=== PATIENT | male | born 1950 | race Caucasian/White ===

== ENCOUNTER 2017-06-18 16:56 | Inpatient (IN) | payer MEDICARE, BC ==
[~2017-06-18] VITALS: Ht 182.9 cm; Wt 72.6 kg
[2017-06-18 17:10] VITALS: BP 133/85
[2017-06-18 17:49] LABS: HEMATOCRIT 48.1 % (42.0-52.0); HEMOGLOBIN 16.5 G/DL (14.2-18.0); MEAN CORPUSCULAR VOLUME 91 FL (80-99); PLATELET COUNT 265 K/UL (150-450); RED BLOOD COUNT 5.32 M/UL (4.70-6.10); RED CELL DISTRIBUTION WIDTH 11.7 % (11.6-14.8)
[2017-06-18] MEDS ORDERED: NKM (17:56)
[2017-06-18 17:59] LABS: ANION GAP 10 mmol/L (5-15); BLOOD UREA NITROGEN 14 mg/dL (7-18); CALCIUM 9.7 MG/DL (8.5-10.1); CARBON DIOXIDE 28 MMOL/L (21-32); CHLORIDE 98 MMOL/L (98-107); CREATININE 0.9 MG/DL (0.55-1.30); POTASSIUM 3.2 MMOL/L (3.5-5.1); SODIUM 136 MMOL/L (136-145)
[2017-06-18 18:03] LABS: ALANINE AMINOTRANSFERASE 50 U/L (12-78); ALBUMIN/GLOBULIN RATIO 0.9 (1.0-2.7); ALKALINE PHOSPHATASE 153 U/L (46-116); ASPARTATE AMINO TRANSFERASE 34 U/L (15-37); BILIRUBIN,TOTAL 0.5 MG/DL (0.2-1.0)
[2017-06-18 18:11] VITALS: BP 134/112
[2017-06-18] MEDS: metroNIDAZOLE 500mg tab ORAL ONE ×2 (18:45→18:55)
[2017-06-18] MEDS ORDERED: NS 1000ml 2,200 ML IVLG ONE (18:45)
[2017-06-18] MEDS ORDERED: DiphenhydrAMINE 50mg/ml Inj IVP ONE (18:45)
[2017-06-18 19:30] VITALS: BP 161/68
[2017-06-18] MEDS ORDERED: Haloperidol 5mg/ml Inj IM ONE ×2 (19:30→21:30)
[2017-06-18] MEDS ORDERED: PROAIR HFA8.5 GM INH (19:52)
[2017-06-18] MEDS ORDERED: VIAGRA100 MG PO (19:52)
[2017-06-18] MEDS ORDERED: BUPROPION XL150 MG ORAL (19:52)
[2017-06-18] MEDS ORDERED: ZITHROMAX250 MG ORAL (19:52)
[2017-06-18] MEDS ORDERED: MEDROL DOSEPAK4 MG ORAL (19:52)
[2017-06-18] MEDS ORDERED: TRAZODONE HCL50 MG ORAL (19:52)
[2017-06-18] MEDS ORDERED: PROSCAR5 MG ORAL (19:52)
[2017-06-18 20:11] LABS: APPEARANCE,URINE CLEAR; BILIRUBIN, URINE NEGATIVE (NEGATIVE); GLUCOSE, URINE (UA) NEGATIVE (NEGATIVE); KETONES,URINE NEGATIVE (NEGATIVE); LEUKOCYTE ESTERASE ,URINE 1+ (NEGATIVE); NITRITE,URINE NEGATIVE (NEGATIVE); PH,URINE 6 (4.5-8.0); PROTEIN,URINE 3+ (NEGATIVE); UROBILINOGEN,URINE 1 MG/DL (0.0-1.0)
[2017-06-18 20:13] LABS: COLOR,URINE YELLOW
[2017-06-18] MEDS ORDERED: LORazepam Inj 2mg/ml 1ml ONE (20:13)
[2017-06-18] MEDS ORDERED: LORazepam Inj 2mg/ml 1ml IV ONE ×5 (20:15→23:15)
--- NOTE | 2017-06-18 21:17 | Emergency Room Report ---
History of Present Illness General Chief Complaint: General Complaint Source: Patient, Family Member, EMS Present Illness HPI The patient is brought in by EMS. Multiple complaints. The patient states that he started vomiting today and this has been intractable. Just after arriving here in the emergency department, he has developed a recurrent large diarrhea bowel movement. There was also concerned that he had taken oxycodone or Xanax prior to arrival. The was bedside and states that he has an addiction problem with narcotics. She states that he has a history of alcohol use and although there is not alcohol in the home that she knows that he hides it. He did recently (couple weeks ago) have an episode of pneumonia for which he underwent a couple courses of antibiotics. He denies fever or chills. He denies abdominal pain. He states that he has all over body pain and aching. He denies headache or neck pain. He has no other complaints. Allergies: Coded Allergies: No Known Allergies (Unverified , 06/18/17) Patient History Past Medical History: see triage record, other - Drug and alcohol abuse Social History: Reports: alcohol use, drug use Reviewed Nursing Documentation: PMH: Agreed, PSxH: Agreed Nursing Documentation-PMH History Of Psychiatric Problem: Yes Review of Systems All Other Systems: negative except mentioned in HPI Physical Exam Vital Signs Date Time Temp Pulse Resp B/P (MAP) Pulse Ox O2 Delivery O2 Flow Rate FiO2 06/18/17 16:47 98.0 98 16 130/80 98 Room Air 98.1 Sp02 EP Interpretation: reviewed, normal General Appearance: alert, GCS 15, non-toxic, other - Agitated, mildly combatative, vomiting, uncontrolled diarrhea Head: normocephalic, atraumatic Eyes: bilateral eye normal inspection, bilateral eye PERRL ENT: hearing grossly normal, normal pharynx, no angioedema, normal voice Neck: full range of motion, supple/symm/no masses Respiratory: chest non-tender, lungs clear, normal breath sounds, speaking full sentences Cardiovascular #1: regular rate, rhythm, no edema Gastrointestinal: normal bowel sounds, non tender, soft, non-distended, no guarding, no rebound Rectal: deferred Musculoskeletal: back normal, gait/station normal, normal range of motion, non- tender Neurologic: alert, responsive, motor strength/tone normal, sensory intact, speech normal Psychiatric: no suicidal/homicidal ideation, other - agitated, will answer simple questions appropriately, very distracted, moaning. Skin: normal color, no rash, warm/dry, well hydrated Medical Decision Making Diagnostic Impression: Primary Impression: Colitis Additional Impressions: Gastroenteritis Alcohol abuse Narcotic abuse Alcohol withdrawal ER Course This patient presented with recurrent vomiting and watery diarrhea. Initially, he was somewhat redirectable. However, he became more agitated and confused. He also became more tachycardic and hypertensive. I suspect that he is going through alcohol withdrawal. Blood alcohol was 0. I also had wanted to obtain a head CT, however, the patient would not remain still for the imaging. He required very large doses of benzodiazepines. He seemed resistant to Ativan. Therefore he was given Versed in order to obtain a head CT. Possibly this patient has C. difficile colitis related to antibiotic use. I was unable to obtain a CT of the abdomen and pelvis as this patient would not remain still to obtain images. CT of the head is pending at the time of this dictation. If there are any abnormalities on the CT, an addendum will be added. Regardless, this patient is admitted for further evaluation and treatment. This patient is critically ill. This patient required complex medical decision- making, aggressive intervention, extensive laboratory workup and monitoring. Critical care time: 40 minutes. Laboratory Tests Test 06/18/17 17:25 06/18/17 19:44 06/18/17 21:21 White Blood Count 21.0 K/UL (4.8-10.8) H Red Blood Count 5.32 M/UL (4.70-6.10) Hemoglobin 16.5 G/DL (14.2-18.0) Hematocrit 48.1 % (42.0-52.0) Mean Corpuscular Volume 91 FL (80-99) Mean Corpuscular Hemoglobin 31.1 PG (27.0-31.0) H Mean Corpuscular Hemoglobin Concent 34.3 G/DL (32.0-36.0) Red Cell Distribution Width 11.7 % (11.6-14.8) Platelet Count 265 K/UL (150-450) Mean Platelet Volume 5.9 FL (6.5-10.1) L Neutrophils (%) (Auto) % (45.0-75.0) Lymphocytes (%) (Auto) % (20.0-45.0) Monocytes (%) (Auto) % (1.0-10.0) Eosinophils (%) (Auto) % (0.0-3.0) Basophils (%) (Auto) % (0.0-2.0) Differential Total Cells Counted 100 Neutrophils % (Manual) 79 % (45-75) H Lymphocytes % (Manual) 17 % (20-45) L Monocytes % (Manual) 3 % (1-10) Eosinophils % (Manual) 0 % (0-3) Basophils % (Manual) 0 % (0-2) Band Neutrophils 1 % (0-8) Platelet Estimate Adequate Platelet Morphology Normal Red Blood Cell Morphology Normal Sodium Level 136 MMOL/L (136-145) Potassium Level 3.2 MMOL/L (3.5-5.1) L Chloride Level 98 MMOL/L (98-107) Carbon Dioxide Level 28 MMOL/L (21-32) Anion Gap 10 mmol/L (5-15) Blood Urea Nitrogen 14 mg/dL (7-18) Creatinine 0.9 MG/DL (0.55-1.30) Estimate Glomerular Filtration Rate > 60 mL/min (>60) Glucose Level 132 MG/DL (74-106) H Calcium Level 9.7 MG/DL (8.5-10.1) Total Bilirubin 0.5 MG/DL (0.2-1.0) Aspartate Amino Transferase (AST) 34 U/L (15-37) Alanine Aminotransferase (ALT) 50 U/L (12-78) Alkaline Phosphatase 153 U/L (46-116) H Total Protein 8.5 G/DL (6.4-8.2) H Albumin 4.0 G/DL (3.4-5.0) Globulin 4.5 g/dL Albumin/Globulin Ratio 0.9 (1.0-2.7) L Salicylates Level 2.5 ug/mL (2.8-20) L Acetaminophen Level < 2 MCG/ML (10-30) L Serum Alcohol < 3 mg/dL Urine Color Yellow Urine Appearance Clear Urine pH 6 (4.5-8.0) Urine Specific [place] 1.020 (1.005-1.035) Urine Protein 3+ (NEGATIVE) H Urine Glucose (UA) Negative (NEGATIVE) Urine Ketones Negative (NEGATIVE) Urine Occult Blood 1+ (NEGATIVE) H Urine Nitrite Negative (NEGATIVE) Urine Bilirubin Negative (NEGATIVE) Urine Urobilinogen 1 MG/DL (0.0-1.0) H Urine Leukocyte Esterase 1+ (NEGATIVE) H Urine RBC 2-4 /HPF (0 - 0) H Urine WBC 0-2 /HPF (0 - 0) Urine Squamous Epithelial Cells None /LPF (NONE/OCC) Urine Bacteria Few /HPF (NONE) Urine Opiates Screen Negative (NEGATIVE) Urine Barbiturates Screen Negative (NEGATIVE) Phencyclidine (PCP) Screen Negative (NEGATIVE) Urine Amphetamines Screen Negative (NEGATIVE) Urine Benzodiazepines Screen Negative (NEGATIVE) Urine Cocaine Screen Negative (NEGATIVE) Urine Marijuana (THC) Screen Positive (NEGATIVE) H Ammonia 15 umol/L (11-32) EKG Diagnostic Results Rate: normal Rhythm: NSR ST Segments: no acute changes Rhythm Strip Diag. Results EP Interpretation: yes Rate: 60's Rhythm: NSR, no PVC's, no ectopy CT/MRI/US Diagnostic Results CT/MRI/US Diagnostic Results : Imaging Test Ordered: CT head Impression Pending. Last Vital Signs Date Time Temp Pulse Resp B/P (MAP) Pulse Ox O2 Delivery O2 Flow Rate FiO2 06/18/17 19:30 97.6 98 32 161/68 99 Room Air 97.6 Disposition: ADMITTED INPATIENT Condition: Critical Referrals: NON PHYSICIAN (PCP) BE COLLIER D.O. Jun 18, 2017 21:17
[2017-06-18 21:30] VITALS: BP 140/55
[2017-06-18] MEDS ORDERED: Midazolam 2mg/2ml Inj IVP ONE (23:30)
[2017-06-18 23:35] VITALS: BP 150/74
[2017-06-19] VITALS (8 sets, daily range): BP systolic 130–163; BP diastolic 61–86
[2017-06-19] MEDS ORDERED: Thiamine HCl 100 MG in D5W 55 ML IVPB SCH (01:00)
[2017-06-19] MEDS ORDERED: Thiamine HCl 100mg/ml 2 ml Inj ONE (01:47)
[2017-06-19] MEDS: NS w/KCl 20mEq 1,000 ML IV SCH ×3 (02:18→18:55)
--- NOTE | 2017-06-19 08:25 | History and Physical ---
History of Present Illness General Date patient seen: Jun 19, 2017 Time patient seen: 08:24 Reason for Hospitalization: diarrhea Present Illness HPI 67/yo male with pmh of alcohol/benzo/narcotic dependence (was in remission), depression/anxiety who presents with nausea/vomiting and diarrhea. Pt is poor historian. The patient states that he started vomiting yesterday and this has been intractable. Just after arriving in ER, he has developed a recurrent large diarrhea bowel movement. There was also concerned that he had taken oxycodone or Xanax prior to arrival. The was bedside and states that he has an addiction problem with narcotics. She states that he has a history of alcohol use and although there is not alcohol in the home that she knows that he hides it. He did recently (couple weeks ago) have an episode of pneumonia for which he underwent a couple courses of antibiotics. He denies fever or chills. He denies abdominal pain. He states that he has all over body pain and aching. He denies headache or neck pain. Denies chest pain, dysuria, cough. In ER, pt noted to have recurrent vomiting and diarrhea. C. diff sent. Empiric flagyl given. Pt also became more confused and agitated. He was tachycardic and hypertensive so concern for alcohol withdrawal. CT head was done and is pending. He was given several doses of ativan IV w/ improvement. Allergies: Coded Allergies: No Known Allergies (Unverified , 06/18/17) Medication History Scheduled Albuterol Sulfate* (Proair Hfa*), 2 PUFFS INH BID, (Reported) Azithromycin* (Zithromax*), 250 MG ORAL DAILY, (Reported) Bupropion Xl* (Bupropion Xl*), 150 MG ORAL DAILY, (Reported) Finasteride* (Proscar*), 5 MG ORAL DAILY, (Reported) Methylprednisolone (Methylprednisolone*), 4 MG ORAL .as directed, (Reported) Scheduled PRN Sildenafil Citrate (Viagra), 100 MG PO DAILY PRN for OTHER, (Reported) Trazodone Hcl* (Desyrel*), 50 MG ORAL Q6HR PRN for For Anxiety, (Reported) Discontinued Medications No Known Medications* (NKM - No Known Medications*), 0 ., (Reported) Discontinued Reason: Therapy completed Patient History History Provided By: Family Member, Medical Record, PMD Healthcare decision maker Resuscitation status Advanced Directive on File Past Medical/Surgical History Past Medical/Surgical History: (1) Alcohol dependence (2) Tobacco abuse (3) Narcotic addiction (4) Benzodiazepine dependence (5) Depression with anxiety Family History Family History: Patient reports no known family medical history. Social History Social History: (1) Alcohol abuse (2) Tobacco abuse Review of Systems Constitutional: Reports: weakness Eye: Reports: no symptoms ENT: Reports: no symptoms Respiratory: Reports: no symptoms Cardiovascular: Reports: no symptoms Gastrointestinal: Reports: diarrhea, nausea, vomiting Genitourinary: Reports: no symptoms Musculoskeletal: Reports: no symptoms Skin: Reports: no symptoms Psychiatric: Reports: no symptoms Neurological: Reports: no symptoms Endocrine: Reports: no symptoms Hematologic/Lymphatic: Reports: no symptoms Physical Exam Physical Exam Narrative General Appearance: alert, GCS 15, non-toxic, other - Agitated, mildly combatative, vomiting, uncontrolled diarrhea Head: normocephalic, atraumatic Eyes: bilateral eye normal inspection, bilateral eye PERRL ENT: hearing grossly normal, normal pharynx, no angioedema, normal voice Neck: full range of motion, supple/symm/no masses Respiratory: chest non-tender, lungs clear, normal breath sounds, speaking full sentences Cardiovascular #1: regular rate, rhythm, no edema Gastrointestinal: normal bowel sounds, non tender, soft, non-distended, no guarding, no rebound Rectal: deferred Musculoskeletal: back normal, gait/station normal, normal range of motion, non- tender Neurologic: alert, responsive, motor strength/tone normal, sensory intact, speech normal Psychiatric: no suicidal/homicidal ideation, other - agitated, will answer simple questions appropriately, very distracted, moaning. Skin: normal color, no rash, warm/dry, well hydrated Last 24 Hour Vital Signs Date Time Temp Pulse Resp B/P (MAP) Pulse Ox O2 Delivery O2 Flow Rate FiO2 06/19/17 05:05 97.6 87 32 132/68 99 Room Air 97.6 06/19/17 04:47 97.6 87 32 132/68 99 Room Air 97.6 06/19/17 03:41 98.0 89 32 130/72 99 Room Air 98.0 06/19/17 01:30 98.0 108 32 163/86 96 Room Air 98.0 06/18/17 23:35 97.6 99 32 150/74 99 Room Air 97.6 06/18/17 21:30 97.6 109 33 140/55 97 Room Air 97.6 06/18/17 19:30 97.6 98 32 161/68 99 Room Air 97.6 06/18/17 18:11 97.6 79 26 134/112 99 Room Air 97.6 06/18/17 17:10 79 16 133/85 99 Room Air 06/18/17 16:47 98.0 98 16 130/80 98 Room Air 98.1 Intake and Output 06/18/17 06/19/17 19:00 07:00 Intake Total 3356 ml Output Total 800 ml Balance 2556 ml Intake IV Total 3356 ml Output Urine Total 800 ml # Bowel Movements 2 1 Laboratory Tests Test 06/18/17 17:25 06/18/17 19:44 06/18/17 21:21 White Blood Count 21.0 K/UL (4.8-10.8) H Red Blood Count 5.32 M/UL (4.70-6.10) Hemoglobin 16.5 G/DL (14.2-18.0) Hematocrit 48.1 % (42.0-52.0) Mean Corpuscular Volume 91 FL (80-99) Mean Corpuscular Hemoglobin 31.1 PG (27.0-31.0) H Mean Corpuscular Hemoglobin Concent 34.3 G/DL (32.0-36.0) Red Cell Distribution Width 11.7 % (11.6-14.8) Platelet Count 265 K/UL (150-450) Mean Platelet Volume 5.9 FL (6.5-10.1) L Neutrophils (%) (Auto) % (45.0-75.0) Lymphocytes (%) (Auto) % (20.0-45.0) Monocytes (%) (Auto) % (1.0-10.0) Eosinophils (%) (Auto) % (0.0-3.0) Basophils (%) (Auto) % (0.0-2.0) Differential Total Cells Counted 100 Neutrophils % (Manual) 79 % (45-75) H Lymphocytes % (Manual) 17 % (20-45) L Monocytes % (Manual) 3 % (1-10) Eosinophils % (Manual) 0 % (0-3) Basophils % (Manual) 0 % (0-2) Band Neutrophils 1 % (0-8) Platelet Estimate Adequate Platelet Morphology Normal Red Blood Cell Morphology Normal Sodium Level 136 MMOL/L (136-145) Potassium Level 3.2 MMOL/L (3.5-5.1) L Chloride Level 98 MMOL/L (98-107) Carbon Dioxide Level 28 MMOL/L (21-32) Anion Gap 10 mmol/L (5-15) Blood Urea Nitrogen 14 mg/dL (7-18) Creatinine 0.9 MG/DL (0.55-1.30) Estimat Glomerular Filtration Rate > 60 mL/min (>60) Glucose Level 132 MG/DL (74-106) H Calcium Level 9.7 MG/DL (8.5-10.1) Total Bilirubin 0.5 MG/DL (0.2-1.0) Aspartate Amino Transf (AST/SGOT) 34 U/L (15-37) Alanine Aminotransferase (ALT/SGPT) 50 U/L (12-78) Alkaline Phosphatase 153 U/L (46-116) H Total Protein 8.5 G/DL (6.4-8.2) H Albumin 4.0 G/DL (3.4-5.0) Globulin 4.5 g/dL Albumin/Globulin Ratio 0.9 (1.0-2.7) L Salicylates Level 2.5 ug/mL (2.8-20) L Acetaminophen Level < 2 MCG/ML (10-30) L Serum Alcohol < 3 mg/dL Urine Color Yellow Urine Appearance Clear Urine pH 6 (4.5-8.0) Urine Specific [place] 1.020 (1.005-1.035) Urine Protein 3+ (NEGATIVE) H Urine Glucose (UA) Negative (NEGATIVE) Urine Ketones Negative (NEGATIVE) Urine Occult Blood 1+ (NEGATIVE) H Urine Nitrite Negative (NEGATIVE) Urine Bilirubin Negative (NEGATIVE) Urine Urobilinogen 1 MG/DL (0.0-1.0) H Urine Leukocyte Esterase 1+ (NEGATIVE) H Urine RBC 2-4 /HPF (0 - 0) H Urine WBC 0-2 /HPF (0 - 0) Urine Squamous Epithelial Cells None /LPF (NONE/OCC) Urine Bacteria Few /HPF (NONE) Urine Opiates Screen Negative (NEGATIVE) Urine Barbiturates Screen Negative (NEGATIVE) Phencyclidine (PCP) Screen Negative (NEGATIVE) Urine Amphetamines Screen Negative (NEGATIVE) Urine Benzodiazepines Screen Negative (NEGATIVE) Urine Cocaine Screen Negative (NEGATIVE) Urine Marijuana (THC) Screen Positive (NEGATIVE) H Ammonia 15 umol/L (11-32) Height (Feet): 6 Weight (Pounds): 160 Medications Current Medications Medications (Trade) Dose Ordered Sig/Yamileth Route PRN Reason Start Time Stop Time Status Last Admin Dose Admin Acetaminophen (Tylenol) 650 mg Q4H PRN ORAL Mild Pain (Pain Scale 1-3) 06/18/17 21:45 07/18/17 21:44 Dextrose (Dextrose 50%) STAT PRN IV Hypoglycemia 06/19/17 00:15 07/19/17 00:14 Diazepam (Valium) 2 mg Q6H PRN ORAL For Anxiety 06/19/17 00:15 06/26/17 00:14 Folic Acid (Folate) 1 mg DAILY ORAL 06/19/17 09:00 07/19/17 08:59 Metronidazole 100 ml @ 100 mls/hr Q8HR@0400,1200,2000 IVPB 06/19/17 04:00 06/26/17 23:59 06/19/17 04:01 Multivitamins (Multivitamins) 1 tab DAILY ORAL 06/19/17 09:00 07/19/17 08:59 Ondansetron HCl (Zofran) 4 mg Q6H PRN IVP Nausea & Vomiting 06/18/17 21:45 07/18/17 21:44 Sodium Chloride 1,000 ml @ 100 mls/hr Q10H IV 06/18/17 22:30 07/18/17 22:29 06/19/17 02:18 Thiamine HCl 100 mg/Dextrose 56 ml @ 112 mls/hr Q24H IVPB 06/19/17 01:00 07/19/17 00:59 06/19/17 01:52 Assessment/Plan Problem List: (1) Sepsis ICD Codes: A41.9 - Sepsis, unspecified organism SNOMED: 26727681 (2) Acute gastroenteritis ICD Codes: K52.9 - Noninfective gastroenteritis and colitis, unspecified SNOMED: 79404055 (3) Diarrhea ICD Codes: R19.7 - Diarrhea, unspecified SNOMED: 36270743 (4) Intractable vomiting ICD Codes: R11.10 - Vomiting, unspecified SNOMED: 542688697 (5) Hypokalemia ICD Codes: E87.6 - Hypokalemia SNOMED: 06810865 (6) Hypomagnesemia ICD Codes: E83.42 - Hypomagnesemia SNOMED: 234696850 Status: stable Assessment/Plan Admit to tele Gi consulted Empiric flagyl F/u C. diff Monitor lytes and replete Trend CBC IVFs w/ KCl Banana bag Psych consulted Valium PRN for withdrawal D/c buproprion Start prozac Pain control Supportive care SCDs for DVT ppx DVT Prophylaxis: SCD Code Status: Full Hospital Classification Declaration: Based on this initial evaluation, and depending on the patient's clinical course, I anticipate that this patient will require hospitalization for 2-3 days for sepsis, vomiting, diarrhea, and close respiratory/hemodynamic monitoring. Disposition: Once the patient is stable to leave the hospital, I anticipate the patient will likely be discharged to the following environment: home with HH vs SNF I spent 72 minutes on this patient's case, and >50% were dedicated to counseling and/or care coordination. Discussed with patient/family, nursing staff, SW/CM, PCP, GI, psych regarding clinical status, treatment course, and disposition planning. Time of note may not reflect time of encounter. Dion Ramsay M.D. Jun 19, 2017 08:24
[2017-06-19 08:42] LABS: BASOPHILS % (AUTO) 0.6 % (0.0-2.0); EOSINOPHILS % (AUTO) 0.1 % (0.0-3.0); HEMOGLOBIN 14.5 G/DL (14.2-18.0); LYMPHOCYTES % (AUTO) 10.9 % (20.0-45.0); MEAN CORPUSCULAR VOLUME 90 FL (80-99); MONOCYTES % (AUTO) 4.9 % (1.0-10.0); NEUTROPHILS % (AUTO) 83.4 % (45.0-75.0); PLATELET COUNT 219 K/UL (150-450); RED BLOOD COUNT 4.54 M/UL (4.70-6.10); RED CELL DISTRIBUTION WIDTH 11.7 % (11.6-14.8); WHITE BLOOD COUNT 14.5 K/UL (4.8-10.8)
[2017-06-19 09:09] LABS: ANION GAP 8 mmol/L (5-15); BLOOD UREA NITROGEN 10 mg/dL (7-18); CALCIUM 8.2 MG/DL (8.5-10.1); CARBON DIOXIDE 27 MMOL/L (21-32); CHLORIDE 103 MMOL/L (98-107); CREATININE 0.6 MG/DL (0.55-1.30); POTASSIUM 3.5 MMOL/L (3.5-5.1); SODIUM 137 MMOL/L (136-145)
[2017-06-19] MEDS ORDERED: TraZODone 50mg tab ORAL PRN (09:15)
--- NOTE | 2017-06-19 09:54 | GI Initial Consult Note ---
Teagan Marcumh Adebayo N.PFreddy 06/19/17 0954: History of Present Illness General Date patient seen: Jun 19, 2017 Time patient seen: 09:46 Reason for Hospitalization: General Complaint Referring physician: RADHA NIEVES Reason for Consultation: VOMITING, DIARRHEA Present Illness HPI The patient is brought in by EMS. Multiple complaints. The patient states that he started vomiting today and this has been intractable. Just after arriving here in the emergency department, he has developed a recurrent large diarrhea bowel movement. There was also concerned that he had taken oxycodone or Xanax prior to arrival. The was bedside and states that he has an addiction problem with narcotics. She states that he has a history of alcohol use and although there is not alcohol in the home that she knows that he hides it. He did recently (couple weeks ago) have an episode of pneumonia for which he underwent a couple courses of antibiotics. He denies fever or chills. He denies abdominal pain. He states that he has all over body pain and aching. He denies headache or neck pain. He has no other complaine of dits. GI consulted for vomiting/diarrhea Pt seen, awake anxious noted with tremors reported with recent episodarrhea. No active vomiting at this time. Denies any melena or hematochezia. Duration of diarrhea x 3-4 days. Denies any medical history. Denies MJ use, despite positive utox. Daily ETOH user approximately 3-4 cans of beer daily. Stated he has been taking daily oxycodone to "get high." Denies any abdominal pain at this time. Denies any unintentional weight loss or changes in dietary habits. Denies any recent travels. Has been taking zpack for his pneumonia. Unknown history endoscopy / colonoscopy. Home Meds Reported Medications Bupropion Xl* (BUPROPION XL*) 150 Mg Tab.er.24h, 150 MG ORAL DAILY 06/18/17 Finasteride* (PROSCAR*) 5 Mg Tablet, 5 MG ORAL DAILY 06/18/17 Trazodone Hcl* (DESYREL*) 50 Mg Tablet, 50 MG ORAL Q6HR Y for For Anxiety 06/18/17 Albuterol Sulfate* (PROAIR HFA*) 8.5 Gm Hfa.aer.ad, 2 PUFFS INH BID 06/18/17 Sildenafil Citrate (VIAGRA) 100 Mg Tablet, 100 MG PO DAILY Y for OTHER TAKE ONE TABLET BY MOUTH ONCE DAILY NEEDED 06/18/17 Discontinued Reported Medications Methylprednisolone (Methylprednisolone*) 4 Mg Tab.ds.pk, 4 MG ORAL .as directed 06/18/17 Azithromycin* (ZITHROMAX*) 250 Mg Tablet, 250 MG ORAL DAILY, #6 TAB 0 Refills Take two tables once daily for 1 day, then one tablet once daily for 4 days. 06/18/17 No Known Medications* (NKM - No Known Medications*) ., 0 ., 0 Refills 06/18/17 Med list reviewed/reconciled: Yes Allergies: Coded Allergies: No Known Allergies (Unverified , 06/18/17) Patient History Limited by: medical condition History Provided By: Patient, Medical Record PMH Narrative Past Medical History: see triage record, other - Drug and alcohol abuse Social History: Reports: alcohol use, drug use Reviewed Nursing Documentation: PMH: Agreed, PSxH: Agreed Nursing Documentation-PMH History Of Psychiatric Problem: Yes Social History: Reports: alcohol use, drug use Review of Systems All Other Systems: negative except mentioned in HPI Physical Exam Vital Signs Date Time Temp Pulse Resp B/P (MAP) Pulse Ox O2 Delivery O2 Flow Rate FiO2 06/18/17 16:47 98.0 98 16 130/80 98 Room Air 98.1 Sp02 EP Interpretation: reviewed, normal Labs Laboratory Tests Test 06/18/17 17:25 06/18/17 19:44 06/18/17 21:21 06/19/17 08:00 White Blood Count 21.0 K/UL (4.8-10.8) H 14.5 K/UL (4.8-10.8) H Red Blood Count 5.32 M/UL (4.70-6.10) 4.54 M/UL (4.70-6.10) L Hemoglobin 16.5 G/DL (14.2-18.0) 14.5 G/DL (14.2-18.0) Hematocrit 48.1 % (42.0-52.0) 41.0 % (42.0-52.0) L Mean Corpuscular Volume 91 FL (80-99) 90 FL (80-99) Mean Corpuscular Hemoglobin 31.1 PG (27.0-31.0) H 31.9 PG (27.0-31.0) H Mean Corpuscular Hemoglobin Concent 34.3 G/DL (32.0-36.0) 35.3 G/DL (32.0-36.0) Red Cell Distribution Width 11.7 % (11.6-14.8) 11.7 % (11.6-14.8) Platelet Count 265 K/UL (150-450) 219 K/UL (150-450) Mean Platelet Volume 5.9 FL (6.5-10.1) L 6.3 FL (6.5-10.1) L Neutrophils (%) (Auto) % (45.0-75.0) 83.4 % (45.0-75.0) H Lymphocytes (%) (Auto) % (20.0-45.0) 10.9 % (20.0-45.0) L Monocytes (%) (Auto) % (1.0-10.0) 4.9 % (1.0-10.0) Eosinophils (%) (Auto) % (0.0-3.0) 0.1 % (0.0-3.0) Basophils (%) (Auto) % (0.0-2.0) 0.6 % (0.0-2.0) Differential Total Cells Counted 100 Neutrophils % (Manual) 79 % (45-75) H Lymphocytes % (Manual) 17 % (20-45) L Monocytes % (Manual) 3 % (1-10) Eosinophils % (Manual) 0 % (0-3) Basophils % (Manual) 0 % (0-2) Band Neutrophils 1 % (0-8) Platelet Estimate Adequate Platelet Morphology Normal Red Blood Cell Morphology Normal Sodium Level 136 MMOL/L (136-145) 137 MMOL/L (136-145) Potassium Level 3.2 MMOL/L (3.5-5.1) L 3.5 MMOL/L (3.5-5.1) Chloride Level 98 MMOL/L (98-107) 103 MMOL/L (98-107) Carbon Dioxide Level 28 MMOL/L (21-32) 27 MMOL/L (21-32) Anion Gap 10 mmol/L (5-15) 8 mmol/L (5-15) Blood Urea Nitrogen 14 mg/dL (7-18) 10 mg/dL (7-18) Creatinine 0.9 MG/DL (0.55-1.30) 0.6 MG/DL (0.55-1.30) Estimat Glomerular Filtration Rate > 60 mL/min (>60) > 60 mL/min (>60) Glucose Level 132 MG/DL (74-106) H 140 MG/DL (74-106) H Calcium Level 9.7 MG/DL (8.5-10.1) 8.2 MG/DL (8.5-10.1) L Total Bilirubin 0.5 MG/DL (0.2-1.0) Aspartate Amino Transf (AST/SGOT) 34 U/L (15-37) Alanine Aminotransferase (ALT/SGPT) 50 U/L (12-78) Alkaline Phosphatase 153 U/L (46-116) H Total Protein 8.5 G/DL (6.4-8.2) H Albumin 4.0 G/DL (3.4-5.0) Globulin 4.5 g/dL Albumin/Globulin Ratio 0.9 (1.0-2.7) L Salicylates Level 2.5 ug/mL (2.8-20) L Acetaminophen Level < 2 MCG/ML (10-30) L Serum Alcohol < 3 mg/dL Urine Color Yellow Urine Appearance Clear Urine pH 6 (4.5-8.0) Urine Specific [place] 1.020 (1.005-1.035) Urine Protein 3+ (NEGATIVE) H Urine Glucose (UA) Negative (NEGATIVE) Urine Ketones Negative (NEGATIVE) Urine Occult Blood 1+ (NEGATIVE) H Urine Nitrite Negative (NEGATIVE) Urine Bilirubin Negative (NEGATIVE) Urine Urobilinogen 1 MG/DL (0.0-1.0) H Urine Leukocyte Esterase 1+ (NEGATIVE) H Urine RBC 2-4 /HPF (0 - 0) H Urine WBC 0-2 /HPF (0 - 0) Urine Squamous Epithelial Cells None /LPF (NONE/OCC) Urine Bacteria Few /HPF (NONE) Urine Opiates Screen Negative (NEGATIVE) Urine Barbiturates Screen Negative (NEGATIVE) Phencyclidine (PCP) Screen Negative (NEGATIVE) Urine Amphetamines Screen Negative (NEGATIVE) Urine Benzodiazepines Screen Negative (NEGATIVE) Urine Cocaine Screen Negative (NEGATIVE) Urine Marijuana (THC) Screen Positive (NEGATIVE) H Ammonia 15 umol/L (11-32) General Appearance: well appearing, no apparent distress, alert, other - anxious Head: normocephalic EENT: PERRL/EOMI, normal ENT inspection Neck: supple Respiratory: normal breath sounds, no respiratory distress Cardiovascular: normal rate Gastrointestinal: normal inspection, non tender, soft, normal bowel sounds, non -distended Rectal: deferred Genitourinary: deferred Musculoskeletal: normal inspection, back normal Neurologic: normal inspection, alert, oriented x3, responsive Psychiatric: normal inspection, judgement/insight normal, memory normal Skin: normal inspection, normal color, no rash, warm/dry, palpation normal, well hydrated Lymphatic: normal inspection, no adenopathy Current Medications Current Medications Medications (Trade) Dose Ordered Sig/Yamileth Route PRN Reason Start Time Stop Time Status Last Admin Dose Admin Acetaminophen (Tylenol) 650 mg Q4H PRN ORAL Mild Pain (Pain Scale 1-3) 06/18/17 21:45 07/18/17 21:44 Bupropion HCl (Wellbutrin XL) 150 mg DAILY ORAL 06/19/17 10:00 07/19/17 09:59 Dextrose (Dextrose 50%) STAT PRN IV Hypoglycemia 06/19/17 00:15 07/19/17 00:14 Diazepam (Valium) 2 mg Q6H PRN ORAL For Anxiety 06/19/17 00:15 06/26/17 00:14 Finasteride (Proscar) 5 mg DAILY ORAL 06/19/17 10:00 07/19/17 09:59 Folic Acid (Folate) 1 mg DAILY ORAL 06/19/17 09:00 07/19/17 08:59 06/19/17 09:06 Metronidazole 100 ml @ 100 mls/hr Q8HR@0400,1200,2000 IVPB 06/19/17 04:00 06/26/17 23:59 06/19/17 04:01 Multivitamins (Multivitamins) 1 tab DAILY ORAL 06/19/17 09:00 07/19/17 08:59 06/19/17 09:06 Ondansetron HCl (Zofran) 4 mg Q6H PRN IVP Nausea & Vomiting 06/18/17 21:45 07/18/17 21:44 Sodium Chloride 1,000 ml @ 100 mls/hr Q10H IV 06/18/17 22:30 07/18/17 22:29 06/19/17 09:08 Thiamine HCl 100 mg/Dextrose 56 ml @ 112 mls/hr Q24H IVPB 06/19/17 01:00 07/19/17 00:59 06/19/17 01:52 Trazodone HCl (Desyrel) 50 mg QHS PRN ORAL insomnia 06/19/17 09:15 07/19/17 09:14 GI: Plan Problems: (1) Alcohol withdrawal (2) Narcotic abuse (3) Colitis (4) Gastroenteritis (5) Intractable vomiting Plan utox positive for MJ send for stool studies, cdiff folate/thiamine/MVI ativan prn ppi adv diet abx fu labs Discussed with Dr. Galeano. Thank you for this patient referral, we will follow. JB GALEANO 06/25/17 1132: History of Present Illness General Reason for Hospitalization: General Complaint Present Illness Home Meds Reported Medications Bupropion Xl* (BUPROPION XL*) 150 Mg Tab.er.24h, 150 MG ORAL DAILY 06/18/17 Finasteride* (PROSCAR*) 5 Mg Tablet, 5 MG ORAL DAILY 06/18/17 Trazodone Hcl* (DESYREL*) 50 Mg Tablet, 50 MG ORAL Q6HR Y for For Anxiety 06/18/17 Albuterol Sulfate* (PROAIR HFA*) 8.5 Gm Hfa.aer.ad, 2 PUFFS INH BID 06/18/17 Sildenafil Citrate (VIAGRA) 100 Mg Tablet, 100 MG PO DAILY Y for OTHER TAKE ONE TABLET BY MOUTH ONCE DAILY NEEDED 06/18/17 Discontinued Reported Medications Methylprednisolone (Methylprednisolone*) 4 Mg Tab.ds.pk, 4 MG ORAL .as directed 06/18/17 Azithromycin* (ZITHROMAX*) 250 Mg Tablet, 250 MG ORAL DAILY, #6 TAB 0 Refills Take two tables once daily for 1 day, then one tablet once daily for 4 days. 06/18/17 No Known Medications* (NKM - No Known Medications*) ., 0 ., 0 Refills 06/18/17 Allergies: Coded Allergies: No Known Allergies (Unverified , 06/18/17) GI: Plan Plan The patient was seen and examined at bedside and all new and available data was reviewed in the patients chart. I agree with the above findings, impression and plan. (Patient seen earlier today. Signature stamp does not reflect patient encounter time.). - MD Trixie Rubi Anh Adebayo Blank Jun 19, 2017 09:54 JB GALEANO Jun 25, 2017 11:32
[2017-06-19] MEDS ORDERED: BuPROPion XL 150mg tab ORAL SCH (10:00)
[2017-06-19] MEDS: Aspirin EC 81mg tab ORAL SCH (11:11)
[2017-06-19] MEDS: metroNIDAZOLE 500mg tab ORAL SCH ×3 (11:11→20:48)
[2017-06-19] MEDS ORDERED: Thiamine HCl 100 MG, Folic Acid 1 MG, Magnesium Sulfate 2,000 MG, Multivitamin - 12 Inj... IV SCH ×5 (12:00)
--- NOTE | 2017-06-19 12:12 | Diagnostic Imaging Report ---
Indication: Cough Comparison: None A single view chest radiograph was obtained. Findings: Interstitium of the lungs appears abnormal with reticular nodular opacities. Findings are nonspecific and acuity indeterminate. There is cardiomegaly present. Bones are osteopenic. No pleural effusion seen. IMPRESSION: Interstitial prominence nonspecific. Please correlate clinically
[2017-06-19] MEDS ORDERED: Folic Acid 1 MG, Magnesium Sulfate 2,000 MG, Multivitamin - 12 Injection 10 ML in NS w/... IV SCH (14:00)
--- NOTE | 2017-06-19 19:37 | Consultation ---
History of Present Illness General Date patient seen: Jun 19, 2017 Chief Complaint: General Complaint Referring physician: RADHA NIEVES Reason for Consultation: VOMITING, DIARRHEA Present Illness HPI the patient is a 67 yo male brought in by EMS, he has hx of alcohol dependence. The patient started vomiting today and this has been intractable. in ed he has developed a recurrent large diarrhea bowel movement. The pt relapsed on alcohol oxycodone and Xanax. he has been sober and relapsed 6 months ago Allergies: Coded Allergies: No Known Allergies (Unverified , 06/18/17) Medication History Scheduled Albuterol Sulfate* (Proair Hfa*), 2 PUFFS INH BID, (Reported) Azithromycin* (Zithromax*), 250 MG ORAL DAILY, (Reported) Bupropion Xl* (Bupropion Xl*), 150 MG ORAL DAILY, (Reported) Finasteride* (Proscar*), 5 MG ORAL DAILY, (Reported) Methylprednisolone (Methylprednisolone*), 4 MG ORAL .as directed, (Reported) Scheduled PRN Sildenafil Citrate (Viagra), 100 MG PO DAILY PRN for OTHER, (Reported) Trazodone Hcl* (Desyrel*), 50 MG ORAL Q6HR PRN for For Anxiety, (Reported) Discontinued Medications No Known Medications* (NKM - No Known Medications*), 0 ., (Reported) Discontinued Reason: Therapy completed Patient History Healthcare decision maker Resuscitation status Full Code Advanced Directive on File Past Medical/Surgical History Past Medical/Surgical History: (1) Alcohol abuse (2) Alcohol withdrawal (3) Narcotic abuse (4) Colitis (5) Gastroenteritis (6) Intractable vomiting Review of Systems Psychiatric: Reports: prior hx, anxiety, depressed feelings, emotional problems Physical Exam General Appearance: no apparent distress, alert, agitated Last 24 Hour Vital Signs Date Time Temp Pulse Resp B/P (MAP) Pulse Ox O2 Delivery O2 Flow Rate FiO2 06/19/17 16:00 62 06/19/17 12:00 97.7 72 20 147/83 96 Room Air 97.7 06/19/17 12:00 77 06/19/17 10:30 82 24 156/86 93 Room Air 06/19/17 08:00 62 06/19/17 08:00 97.9 67 24 140/61 97 Room Air 97.9 3/8/18 05:05 97.6 87 32 132/68 99 Room Air 97.6 06/19/17 04:47 97.6 87 32 132/68 99 Room Air 97.6 06/19/17 03:41 98.0 89 32 130/72 99 Room Air 98.0 06/19/17 01:30 98.0 108 32 163/86 96 Room Air 98.0 06/18/17 23:35 97.6 99 32 150/74 99 Room Air 97.6 06/18/17 21:30 97.6 109 33 140/55 97 Room Air 97.6 Intake and Output 06/18/17 06/19/17 18:59 06:59 Intake Total 3356 ml Output Total 800 ml Balance 2556 ml IV Total 3356 ml Output Urine Total 800 ml # Bowel Movements 2 1 Laboratory Tests Test 06/18/17 19:44 06/18/17 21:21 06/19/17 08:00 Urine Color Yellow Urine Appearance Clear Urine pH 6 (4.5-8.0) Urine Specific [place] 1.020 (1.005-1.035) Urine Protein 3+ (NEGATIVE) H Urine Glucose (UA) Negative (NEGATIVE) Urine Ketones Negative (NEGATIVE) Urine Occult Blood 1+ (NEGATIVE) H Urine Nitrite Negative (NEGATIVE) Urine Bilirubin Negative (NEGATIVE) Urine Urobilinogen 1 MG/DL (0.0-1.0) H Urine Leukocyte Esterase 1+ (NEGATIVE) H Urine RBC 2-4 /HPF (0 - 0) H Urine WBC 0-2 /HPF (0 - 0) Urine Squamous Epithelial Cells None /LPF (NONE/OCC) Urine Bacteria Few /HPF (NONE) Urine Opiates Screen Negative (NEGATIVE) Urine Barbiturates Screen Negative (NEGATIVE) Phencyclidine (PCP) Screen Negative (NEGATIVE) Urine Amphetamines Screen Negative (NEGATIVE) Urine Benzodiazepines Screen Negative (NEGATIVE) Urine Cocaine Screen Negative (NEGATIVE) Urine Marijuana (THC) Screen Positive (NEGATIVE) H Ammonia 15 umol/L (11-32) White Blood Count 14.5 K/UL (4.8-10.8) H Red Blood Count 4.54 M/UL (4.70-6.10) L Hemoglobin 14.5 G/DL (14.2-18.0) Hematocrit 41.0 % (42.0-52.0) L Mean Corpuscular Volume 90 FL (80-99) Mean Corpuscular Hemoglobin 31.9 PG (27.0-31.0) H Mean Corpuscular Hemoglobin Concent 35.3 G/DL (32.0-36.0) Red Cell Distribution Width 11.7 % (11.6-14.8) Platelet Count 219 K/UL (150-450) Mean Platelet Volume 6.3 FL (6.5-10.1) L Neutrophils (%) (Auto) 83.4 % (45.0-75.0) H Lymphocytes (%) (Auto) 10.9 % (20.0-45.0) L Monocytes (%) (Auto) 4.9 % (1.0-10.0) Eosinophils (%) (Auto) 0.1 % (0.0-3.0) Basophils (%) (Auto) 0.6 % (0.0-2.0) Sodium Level 137 MMOL/L (136-145) Potassium Level 3.5 MMOL/L (3.5-5.1) Chloride Level 103 MMOL/L (98-107) Carbon Dioxide Level 27 MMOL/L (21-32) Anion Gap 8 mmol/L (5-15) Blood Urea Nitrogen 10 mg/dL (7-18) Creatinine 0.6 MG/DL (0.55-1.30) Estimat Glomerular Filtration Rate > 60 mL/min (>60) Glucose Level 140 MG/DL (74-106) H Calcium Level 8.2 MG/DL (8.5-10.1) L Magnesium Level 1.6 MG/DL (1.8-2.4) L Height (Feet): 6 Height (Inches): 0.00 Weight (Pounds): 160 Medications Current Medications Medications (Trade) Dose Ordered Sig/Yamileth Route PRN Reason Start Time Stop Time Status Last Admin Dose Admin Acetaminophen (Tylenol) 650 mg Q4H PRN ORAL Mild Pain (Pain Scale 1-3) 06/18/17 21:45 07/18/17 21:44 Albuterol/ Ipratropium (Albuterol/ Ipratropium) 3 ml Q6HRT PRN HHN sob, wheezing 06/19/17 10:15 06/24/17 10:14 Aspirin (Ecotrin) 81 mg DAILY ORAL 06/19/17 10:30 07/19/17 10:29 06/19/17 11:11 Atorvastatin Calcium (Lipitor) 20 mg BEDTIME ORAL 06/19/17 21:00 07/19/17 20:59 Dextrose (Dextrose 50%) STAT PRN IV Hypoglycemia 06/19/17 00:15 07/19/17 00:14 Diazepam (Valium) 10 mg EVERY 4 HOURS PRN ORAL For Anxiety 06/19/17 19:30 06/26/17 00:14 UNV Finasteride (Proscar) 5 mg DAILY ORAL 06/19/17 10:00 07/19/17 09:59 06/19/17 11:12 Fluoxetine HCl (PROzac) 20 mg DAILY ORAL 06/20/17 09:00 07/20/17 08:59 UNV Folic Acid 1 mg/ Magnesium Sulfate 2000 mg/ Multivitamins 10 ml/Sodium Chloride 1,014.2 ml @ 125 mls/ hr Q24H IV 06/19/17 14:00 07/19/17 13:59 06/19/17 14:24 Metronidazole (Flagyl) 500 mg Q8HR ORAL 06/19/17 12:00 06/26/17 11:59 06/19/17 14:24 Ondansetron HCl (Zofran) 4 mg Q6H PRN IVP Nausea & Vomiting 06/18/17 21:45 07/18/17 21:44 Sodium Chloride 1,000 ml @ 100 mls/hr Q10H IV 06/18/17 22:30 07/18/17 22:29 06/19/17 18:55 Thiamine HCl 100 mg/Sodium Chloride 56 ml @ 112 mls/hr Q24H IVPB 06/19/17 21:00 07/19/17 20:59 Trazodone HCl (Desyrel) 50 mg QHS PRN ORAL insomnia 06/19/17 09:15 07/19/17 09:14 Assessment/Plan Status: not improved, unchanged Assessment/Plan alcohol dependence alcohol withdrawal -valium 10mg q 4 prn folate thiamine prozac 20mg Dewayne Hernandez M.D. Jun 19, 2017 19:37
[2017-06-19] MEDS ORDERED: Atorvastatin 20mg tab ORAL SCH (21:00)
[2017-06-19] MEDS ORDERED: Thiamine HCl 100 MG in NS 55 ML IVPB SCH (21:00)
[2017-06-19] MEDS: Albuterol/Ipratropium 3ml neb HHN PRN (22:25)
[2017-06-20] VITALS: BP 143/76
[2017-06-20 04:00] VITALS: BP 139/75
[2017-06-20] MEDS: NS w/KCl 20mEq 1,000 ML IV SCH ×2 (04:11→15:47)
[2017-06-20] MEDS: metroNIDAZOLE 500mg tab ORAL SCH (06:38)
[2017-06-20 07:25] LABS: BASOPHILS % (AUTO) 0.5 % (0.0-2.0); EOSINOPHILS % (AUTO) 0.3 % (0.0-3.0); HEMATOCRIT 42.5 % (42.0-52.0); HEMOGLOBIN 15.1 G/DL (14.2-18.0); MEAN CORPUSCULAR VOLUME 90 FL (80-99); MONOCYTES % (AUTO) 6.1 % (1.0-10.0); NEUTROPHILS % (AUTO) 75.1 % (45.0-75.0); PLATELET COUNT 227 K/UL (150-450); RED BLOOD COUNT 4.75 M/UL (4.70-6.10); RED CELL DISTRIBUTION WIDTH 11.4 % (11.6-14.8); WHITE BLOOD COUNT 12.4 K/UL (4.8-10.8)
[2017-06-20 07:40] LABS: ALANINE AMINOTRANSFERASE 48 U/L (12-78); ALBUMIN 3.3 G/DL (3.4-5.0); ALBUMIN/GLOBULIN RATIO 0.8 (1.0-2.7); ALKALINE PHOSPHATASE 113 U/L (46-116); ANION GAP 11 mmol/L (5-15); ASPARTATE AMINO TRANSFERASE 67 U/L (15-37); BILIRUBIN,TOTAL 0.6 MG/DL (0.2-1.0); BLOOD UREA NITROGEN 9 mg/dL (7-18); CALCIUM 8.6 MG/DL (8.5-10.1); CARBON DIOXIDE 25 MMOL/L (21-32); CHLORIDE 100 MMOL/L (98-107); CREATININE 0.7 MG/DL (0.55-1.30); PHOSPHORUS 2.6 MG/DL (2.5-4.9); POTASSIUM 3.5 MMOL/L (3.5-5.1); SODIUM 136 MMOL/L (136-145)
[2017-06-20 08:00] VITALS: BP 138/78
[2017-06-20] MEDS: Albuterol/Ipratropium 3ml neb HHN PRN ×2 (08:30→14:54)
[2017-06-20] MEDS: Aspirin EC 81mg tab ORAL SCH (08:34)
--- NOTE | 2017-06-20 09:59 | General Progress Note ---
Assessment/Plan Problem List: (1) Sepsis ICD Codes: A41.9 - Sepsis, unspecified organism SNOMED: 90615672 (2) Acute gastroenteritis ICD Codes: K52.9 - Noninfective gastroenteritis and colitis, unspecified SNOMED: 25033954 (3) Diarrhea ICD Codes: R19.7 - Diarrhea, unspecified SNOMED: 61825593 (4) Intractable vomiting ICD Codes: R11.10 - Vomiting, unspecified SNOMED: 921107281 (5) Hypokalemia ICD Codes: E87.6 - Hypokalemia SNOMED: 92619909 (6) Hypomagnesemia ICD Codes: E83.42 - Hypomagnesemia SNOMED: 750643295 Subjective Date patient seen: Jun 20, 2017 Time patient seen: 09:58 ROS Limited/Unobtainable: No Constitutional: Reports: no symptoms HEENT: Reports: no symptoms Cardiovascular: Reports: no symptoms Respiratory: Reports: no symptoms Gastrointestinal/Abdominal: Reports: no symptoms Genitourinary: Reports: no symptoms Neurologic/Psychiatric: Reports: no symptoms Endocrine: Reports: no symptoms Hematologic/Lymphatic: Reports: no symptoms Allergies: Coded Allergies: No Known Allergies (Unverified , 06/18/17) Objective Last 24 Hour Vital Signs Date Time Temp Pulse Resp B/P (MAP) Pulse Ox O2 Delivery O2 Flow Rate FiO2 06/20/17 09:00 68 16 99 Room Air 21 06/20/17 09:00 21 06/20/17 08:59 68 18 Room Air 21 06/20/17 08:30 56 18 98 Room Air 21 06/20/17 08:00 97.8 68 18 138/78 97 Room Air 97.8 06/20/17 04:00 66 06/20/17 04:00 97.6 66 18 139/75 97 Room Air 97.6 06/20/17 00:00 66 06/20/17 00:00 97.0 61 20 143/76 98 Room Air 97.0 06/19/17 22:32 62 16 98 Room Air 21 06/19/17 22:24 21 06/19/17 22:23 60 18 96 Room Air 21 06/19/17 20:13 64 18 Room Air 21 06/19/17 20:00 97.9 64 20 141/79 96 Room Air 97.9 3/8/18 20:00 57 06/19/17 16:00 62 06/19/17 16:00 97.5 75 20 134/73 96 Room Air 97.5 06/19/17 12:00 97.7 72 20 147/83 96 Room Air 97.7 06/19/17 12:00 77 06/19/17 10:30 82 24 156/86 93 Room Air Intake and Output 06/19/17 06/20/17 19:00 07:00 Intake Total 670 ml Balance 670 ml Intake Oral 670 ml # Voids 5 4 # Bowel Movements 8 Laboratory Tests 06/20/17 04:00: Sodium Level 136, Potassium Level 3.5, Chloride Level 100, Carbon Dioxide Level 25, Anion Gap 11, Blood Urea Nitrogen 9, Creatinine 0.7, Estimat Glomerular Filtration Rate > 60, Glucose Level 129H, Calcium Level 8.6, Phosphorus Level 2.6, Total Bilirubin 0.6, Aspartate Amino Transf (AST/SGOT) 67H, Alanine Aminotransferase (ALT/SGPT) 48, Alkaline Phosphatase 113, Total Protein 7.3, Albumin 3.3L, Globulin 4.0, Albumin/Globulin Ratio 0.8L 06/20/17 05:25: White Blood Count 12.4H, Red Blood Count 4.75, Hemoglobin 15.1, Hematocrit 42.5 , Mean Corpuscular Volume 90, Mean Corpuscular Hemoglobin 31.7H, Mean Corpuscular Hemoglobin Concent 35.4, Red Cell Distribution Width 11.4L, Platelet Count 227, Mean Platelet Volume 6.1L, Neutrophils (%) (Auto) 75.1H, Lymphocytes (%) (Auto) 18.0L, Monocytes (%) (Auto) 6.1, Eosinophils (%) (Auto) 0.3, Basophils (%) (Auto) 0.5 Height (Feet): 6 Height (Inches): 0.00 Weight (Pounds): 160 Dion Ramsay M.D. Jun 20, 2017 09:59
--- NOTE | 2017-06-20 11:18 | GI Progress Note ---
Assessment/Plan Problems: (1) Diarrhea ICD Codes: R19.7 - Diarrhea, unspecified SNOMED: 98152007 (2) Depression with anxiety ICD Codes: F41.8 - Other specified anxiety disorders SNOMED: 623832333 (3) Benzodiazepine dependence ICD Codes: F13.20 - Sedative, hypnotic or anxiolytic dependence, uncomplicated SNOMED: 026409418 (4) Tobacco abuse ICD Codes: Z72.0 - Tobacco use SNOMED: 377068893 (5) Narcotic addiction ICD Codes: F11.20 - Opioid dependence, uncomplicated SNOMED: 16434145 (6) Alcohol dependence ICD Codes: F10.20 - Alcohol dependence, uncomplicated SNOMED: 43095310 (7) Intractable vomiting ICD Codes: R11.10 - Vomiting, unspecified SNOMED: 196359801 Status: stable, progressing Status Narrative Discussed with Dr. Holbrook. Assessment/Plan utox positive for MJ send for stool studies, cdiff >> negative folate/thiamine/MVI ativan prn ppi adv diet abx fu labs ETOH/drug avoidance education given patient will benefit from rehab dc planning Subjective Gastrointestinal/Abdominal: Reports: no symptoms Subjective wants to be discharged Objective Last 24 Hour Vital Signs Date Time Temp Pulse Resp B/P (MAP) Pulse Ox O2 Delivery O2 Flow Rate FiO2 06/20/17 09:00 68 16 99 Room Air 21 06/20/17 09:00 21 06/20/17 08:59 68 18 Room Air 21 06/20/17 08:30 56 18 98 Room Air 21 06/20/17 08:00 97.8 68 18 138/78 97 Room Air 97.8 06/20/17 08:00 57 06/20/17 04:00 66 06/20/17 04:00 97.6 66 18 139/75 97 Room Air 97.6 06/20/17 00:00 66 06/20/17 00:00 97.0 61 20 143/76 98 Room Air 97.0 06/19/17 22:32 62 16 98 Room Air 21 06/19/17 22:24 21 06/19/17 22:23 60 18 96 Room Air 21 06/19/17 20:13 64 18 Room Air 21 06/19/17 20:00 97.9 64 20 141/79 96 Room Air 97.9 3/8/18 20:00 57 06/19/17 16:00 62 06/19/17 16:00 97.5 75 20 134/73 96 Room Air 97.5 06/19/17 12:00 97.7 72 20 147/83 96 Room Air 97.7 06/19/17 12:00 77 Intake and Output 06/19/17 06/20/17 19:00 07:00 Intake Total 670 ml Balance 670 ml Intake Oral 670 ml # Voids 5 4 # Bowel Movements 8 Laboratory Tests Test 06/20/17 04:00 06/20/17 05:25 Sodium Level 136 MMOL/L (136-145) Potassium Level 3.5 MMOL/L (3.5-5.1) Chloride Level 100 MMOL/L (98-107) Carbon Dioxide Level 25 MMOL/L (21-32) Anion Gap 11 mmol/L (5-15) Blood Urea Nitrogen 9 mg/dL (7-18) Creatinine 0.7 MG/DL (0.55-1.30) Estimat Glomerular Filtration Rate > 60 mL/min (>60) Glucose Level 129 MG/DL (74-106) H Calcium Level 8.6 MG/DL (8.5-10.1) Phosphorus Level 2.6 MG/DL (2.5-4.9) Total Bilirubin 0.6 MG/DL (0.2-1.0) Aspartate Amino Transf (AST/SGOT) 67 U/L (15-37) H Alanine Aminotransferase (ALT/SGPT) 48 U/L (12-78) Alkaline Phosphatase 113 U/L (46-116) Total Protein 7.3 G/DL (6.4-8.2) Albumin 3.3 G/DL (3.4-5.0) L Globulin 4.0 g/dL Albumin/Globulin Ratio 0.8 (1.0-2.7) L White Blood Count 12.4 K/UL (4.8-10.8) H Red Blood Count 4.75 M/UL (4.70-6.10) Hemoglobin 15.1 G/DL (14.2-18.0) Hematocrit 42.5 % (42.0-52.0) Mean Corpuscular Volume 90 FL (80-99) Mean Corpuscular Hemoglobin 31.7 PG (27.0-31.0) H Mean Corpuscular Hemoglobin Concent 35.4 G/DL (32.0-36.0) Red Cell Distribution Width 11.4 % (11.6-14.8) L Platelet Count 227 K/UL (150-450) Mean Platelet Volume 6.1 FL (6.5-10.1) L Neutrophils (%) (Auto) 75.1 % (45.0-75.0) H Lymphocytes (%) (Auto) 18.0 % (20.0-45.0) L Monocytes (%) (Auto) 6.1 % (1.0-10.0) Eosinophils (%) (Auto) 0.3 % (0.0-3.0) Basophils (%) (Auto) 0.5 % (0.0-2.0) Height (Feet): 6 Height (Inches): 0.00 Weight (Pounds): 160 General Appearance: WD/WN, no apparent distress, alert Cardiovascular: normal rate Respiratory/Chest: normal breath sounds, no respiratory distress Abdominal Exam: normal bowel sounds, non tender, soft Extremities: normal range of motion, non-tender Yessi Marcum N.P. Jun 20, 2017 11:17
[2017-06-20 11:58] VITALS: BP 146/76
--- NOTE | 2017-06-20 12:45 | Diagnostic Imaging Report ---
Indications: Altered mental status Technique: Spiral acquisitions obtained through the brain. Angled axial and coronal 5 x 5 mm slices were reconstructed. Total dose length product 1365 mGycm. CTDI vol(s) 70 mGy. Dose reduction achieved using automated exposure control Comparison: None. Findings: There is considerable image degradation due to streak artifact from dental amalgam in the posterior fossa and motion artifact in general. This may obscure significant pathology. No gross acute intracranial bleed or edema, mass effect or midline shift. Normal-sized ventricles and extra axial CSF spaces. Grossly intact calvarium. Visualized orbits and sinuses are unremarkable. There is mild age-related enlargement of the ventricles and extra axial CSF spaces. Impression: Very limited exam due to artifacts as described No acute gross acute intracranial bleed or mass effect, but significant pathology could easily be missed. Age-related volume loss. This agrees with the preliminary interpretation provided overnight by [facility]. The CT scanner at [facility] is accredited by the [employer] and the scans are performed using protocols designed to limit radiation exposure to as low as reasonably achievable to attain images of sufficient resolution adequate for diagnostic evaluation.
[2017-06-20 16:00] VITALS: BP 131/76
--- NOTE | 2017-06-20 20:17 | General Progress Note ---
Assessment/Plan Status: stable Assessment/Plan alcohol wd alcohol dependence the pt was advised to stay one more night the pt would like to go home the pt was discharged on 15 pills of valium 10mg cont prozac the pt is not at imminent dts Subjective Date patient seen: Jun 20, 2017 Neurologic/Psychiatric: Reports: anxiety, depressed, emotional problems Allergies: Coded Allergies: No Known Allergies (Unverified , 06/18/17) Objective Last 24 Hour Vital Signs Date Time Temp Pulse Resp B/P (MAP) Pulse Ox O2 Delivery O2 Flow Rate FiO2 06/20/17 16:00 98.1 66 20 131/76 99 Room Air 98.1 06/20/17 14:53 21 06/20/17 14:52 65 20 97 Room Air 21 06/20/17 12:00 65 06/20/17 11:58 97.7 68 20 146/76 97 Room Air 97.7 06/20/17 09:00 68 16 99 Room Air 21 06/20/17 09:00 21 06/20/17 08:59 68 18 Room Air 21 06/20/17 08:30 56 18 98 Room Air 21 06/20/17 08:00 97.8 68 18 138/78 97 Room Air 97.8 06/20/17 08:00 57 06/20/17 04:00 66 06/20/17 04:00 97.6 66 18 139/75 97 Room Air 97.6 06/20/17 00:00 66 06/20/17 00:00 97.0 61 20 143/76 98 Room Air 97.0 06/19/17 22:32 62 16 98 Room Air 21 06/19/17 22:24 21 06/19/17 22:23 60 18 96 Room Air 21 Intake and Output 06/19/17 06/20/17 19:00 07:00 Intake Total 670 ml 100 ml Balance 670 ml 100 ml Intake Oral 670 ml IV Total 100 ml # Voids 5 4 # Bowel Movements 8 Laboratory Tests 06/20/17 04:00: Sodium Level 136, Potassium Level 3.5, Chloride Level 100, Carbon Dioxide Level 25, Anion Gap 11, Blood Urea Nitrogen 9, Creatinine 0.7, Estimat Glomerular Filtration Rate > 60, Glucose Level 129H, Calcium Level 8.6, Phosphorus Level 2.6, Total Bilirubin 0.6, Aspartate Amino Transf (AST/SGOT) 67H, Alanine Aminotransferase (ALT/SGPT) 48, Alkaline Phosphatase 113, Total Protein 7.3, Albumin 3.3L, Globulin 4.0, Albumin/Globulin Ratio 0.8L 06/20/17 05:25: White Blood Count 12.4H, Red Blood Count 4.75, Hemoglobin 15.1, Hematocrit 42.5 , Mean Corpuscular Volume 90, Mean Corpuscular Hemoglobin 31.7H, Mean Corpuscular Hemoglobin Concent 35.4, Red Cell Distribution Width 11.4L, Platelet Count 227, Mean Platelet Volume 6.1L, Neutrophils (%) (Auto) 75.1H, Lymphocytes (%) (Auto) 18.0L, Monocytes (%) (Auto) 6.1, Eosinophils (%) (Auto) 0.3, Basophils (%) (Auto) 0.5 Height (Feet): 6 Height (Inches): 0.00 Weight (Pounds): 160 General Appearance: no apparent distress, alert, overweight Dewayne Lopez M.D. Jun 20, 2017 20:17
--- NOTE | 2017-06-22 16:22 | Cardiology Report ---
APPROVED REPORT EKG Measurement Heart [id number] Normal sinus rhythm Left anterior fascicular block Minimal voltage criteria for LVH, may be normal variant Nonspecific ST and T wave abnormality Abnormal ECG
--- NOTE | 2017-06-25 08:19 | Discharge Summary ---
Discharge Summary Hospital Course Date of Admission Jun 18, 2017 at 18:57 Date of Discharge Jun 20, 2017 at 18:35 Admitting Diagnosis intractable vomiting and diarrhea Reason for Hospitalization: sepsis, acute gastroenteritis HPI 67/yo male with pmh of alcohol/benzo/narcotic dependence (was in remission), depression/anxiety who presents with nausea/vomiting and diarrhea. Pt is poor historian. The patient states that he started vomiting yesterday and this has been intractable. Just after arriving in ER, he has developed a recurrent large diarrhea bowel movement. There was also concerned that he had taken oxycodone or Xanax prior to arrival. The was bedside and states that he has an addiction problem with narcotics. She states that he has a history of alcohol use and although there is not alcohol in the home that she knows that he hides it. He did recently (couple weeks ago) have an episode of pneumonia for which he underwent a couple courses of antibiotics. He denies fever or chills. He denies abdominal pain. He states that he has all over body pain and aching. He denies headache or neck pain. Denies chest pain, dysuria, cough. In ER, pt noted to have recurrent vomiting and diarrhea. WBC 21K. C. diff sent. Empiric flagyl given. Pt also became more confused and agitated. He was tachycardic and hypertensive so concern for alcohol withdrawal. CT head was done and is pending. He was given several doses of ativan IV w/ improvement. Consultations Gastroenterology Hospital Course Pt was admitted given concern for sepsis (WBC 21K, tachycardia). He was started on empiric flagyl given concern for C. diff as pt had been on course of antibiotics. He was given IVFs for hydration. GI was consulted. C. diff negative. Pt's diarrhea and vomiting improved quickly, therefore, this appears to be acute gastroenteritis. Pt also seen by psych as he noted alcohol and narcotic abuse, and he appears to be withdrawing. He was given several doses of IV benzodiazepines to control agitation. Once pt more awake and alert he stated that he wanted to quit and was going to seek rehab. Once HD stable and tolerating PO, pt was discharged home. Discharge physical exam General: alert, cooperative, no distress, appears stated age Head: normocephalic, without obvious abnormality, atraumatic Eyes: conjunctivae/corneas clear. PERRL, EOM's intact Throat: lips, mucosa, and tongue normal. MMM Neck: supple, symmetrical, trachea midline, and no JVD Lungs: clear to auscultation bilaterally Heart: regular rate and rhythm, S1, S2 normal, no murmur, click, rub or gallop Abdomen: soft, non-tender, non-distended, bowel sounds normal; no masses or organomegaly Extremities: extremities normal, atraumatic, no cyanosis or edema Pulses: 2+ and symmetric Skin: skin color, texture, turgor normal; no rashes or lesions Neurologic: grossly normal, no focal deficits Discharge diagnoses (1) Sepsis ICD Codes: A41.9 - Sepsis, unspecified organism SNOMED: 30741131 (2) Acute gastroenteritis ICD Codes: K52.9 - Noninfective gastroenteritis and colitis, unspecified SNOMED: 78256228 (3) Diarrhea ICD Codes: R19.7 - Diarrhea, unspecified SNOMED: 80164671 (4) Intractable vomiting ICD Codes: R11.10 - Vomiting, unspecified SNOMED: 775333688 (5) Hypokalemia ICD Codes: E87.6 - Hypokalemia SNOMED: 15883199 (6) Hypomagnesemia ICD Codes: E83.42 - Hypomagnesemia Discharge Medications Continued Medications: Albuterol Sulfate* (Proair Hfa*) 8.5 Gm Hfa.aer.ad 2 PUFFS INH BID Bupropion Xl* (Bupropion Xl*) 150 Mg Tab.er.24h 150 MG ORAL DAILY Finasteride* (Proscar*) 5 Mg Tablet 5 MG ORAL DAILY Sildenafil Citrate (Viagra) 100 Mg Tablet 100 MG PO DAILY PRN for OTHER TAKE ONE TABLET BY MOUTH ONCE DAILY NEEDED Trazodone Hcl* (Desyrel*) 50 Mg Tablet 50 MG ORAL Q6HR PRN for For Anxiety Discontinued Medications: Azithromycin* (Zithromax*) 250 Mg Tablet 250 MG ORAL DAILY, #6 TAB 0 Refills Take two tables once daily for 1 day, then one tablet once daily for 4 days. Methylprednisolone (Methylprednisolone*) 4 Mg Tab.ds.pk 4 MG ORAL .as directed Discharge Condition Upon Discharge: stable Discharge Disposition Patient was discharged to Home with Home Health(06) Discharge Diagnoses: Dion Ramsay M.D. Jun 25, 2017 08:19
== END 2017-06-20 18:35 | disposition home health service (06) | DRG 872 ==
LOC: EDBD 16:56 → EMR 18:06 → 2E 18:57 → EDBEDREQ 20:40 → 2E 06-19 05:04
DX: A41.9 Sepsis, unspecified organism (principal); F11.20 Opioid dependence, uncomplicated; F13.20 Sedative, hypnotic or anxiolytic dependence, uncomplicated; F10.239 Alcohol dependence with withdrawal, unspecified; E83.42 Hypomagnesemia; K52.9 Noninfective gastroenteritis and colitis, unspecified; F19.10 Other psychoactive substance abuse, uncomplicated; E87.6 Hypokalemia; F41.8 Other specified anxiety disorders
CPT/HCPCS: 36415; 70450; 71045; 80048; 80053; 80307; 80329; 81003; 82140; 82962; 83735; 84100; 85007; 85025; 87045; 87324; 93005; 94640; 94664; 99291; J2250; J2405; J7620